=== PATIENT | female | born 1945 | race Caucasian/White ===

== ENCOUNTER → 2017-09-02 | Outpatient (CLI) | payer MEDICARE, OTHER ==
[~2017-09-02] MED LIST: ALBUTEROL2.5 MG/0.5 INH; AMITRIPTYLINE H25 M2 PO; AMITRIPTYLINE H75 M1 PO; ASPIRIN EC81 M1 PO; ASPIRIN81 M2 PO; AZITHROMYCIN 2250 MG PO; AZITHROMYCIN500 MG PO; B12INJ PO; CEFDINIR300 MG PO; EVOXAC30 MG PO; HYDROCODONE-AP1 EAC6 PO; HYDROXYCHLOROQ200 M1 PO; IRON325 MG PO; LORTAB 5-500 T1 EAC1 PO; NEXIUM 40 MG CA40 M1 PO; NEXIUM40 MG PO; NYSTATIN-TRIAMC15 G1 TOP; PREDNISONE 10 M10 MG; PREDNISONE 20 M20 M1 PO; PULMICORT0.5 MG/2 M INH; SINGULAIR 10 MG10 M1 PO; VICODIN 5-3001 EACH PO; VITAMIN B-121000 MCG PO; VITAMIN C100 MG PO; XOPENEX0.63 MG/3 INH; ZOCOR 20 MG TAB20 M1 PO
[2017-09-02 12:41] LABS: ABSOLUTE EOSINOPHILS 0.1 thou/uL (0.0-0.7); ABSOLUTE LYMPHOCYTES 0.4 thou/uL (0.8-5.3); ABSOLUTE MONOCYTES 0.2 thou/uL (0.0-1.2); ABSOLUTE NEUTROPHILS 2.6 thou/uL (1.6-8.1); BASOPHILS 0.7 %; EOSINOPHILS 2.2 %; HEMOGLOBIN 10.8 gm/dL (12.0-15.0); LYMPHOCYTES 11.9 %; MCH 27.6 pg (26.0-34.0); MCHC 32.6 g/dL (28.0-37.0); MCV 84.7 fL (80.0-100.0); MONOCYTES 5.9 %; MPV 8.3 fl. (7.2-11.1); NUCLEATED RBCS 0 /100WBC; PLATELET COUNT* 237 thou/uL (150-400); POLYS 79.3 %; RBC 3.89 mil/uL (4.20-5.00); RDW-CV 15.3 % (10.5-14.5); WBC 3.3 thou/uL (4.0-11.0)
[2017-09-02 12:57] LABS: ALBUMIN 2.8 g/dL (3.4-5.0); CALCIUM 9.4 mg/dL (8.5-10.1); CREATININE 1.2 mg/dL (0.6-1.3); POTASSIUM 3.3 mmol/L (3.5-5.1); TOTAL BILIRUBIN 0.2 mg/dL (<0.1-1.0); TOTAL PROTEIN 8.3 g/dL (6.4-8.2)
[2017-09-02 18:09] LABS: IgA 239 mg/dL (64-422); IgG 2783 mg/dL (700-1600); IgM 77 mg/dL (26-217)
[2017-09-05 12:06] LABS: KAPPA FREE LIGHT CHAINS 104.1 mg/L (3.3-19.4); LAMBDA FREE LIGHT CHAINS 92.3 mg/L (5.7-26.3)
[2017-09-05 16:13] LABS: GLOBULIN TOTAL 4.8 g/dL (2.2-3.9); M-SPIKE Not Observed g/dL (Not Observed)
== END ==
LOC: M.LAB 12:18
PROVIDERS: Internal Medicine
DX: D64.9 Anemia, unspecified (principal); M32.10 Systemic lupus erythematosus, organ or system involvement unspecified

== ENCOUNTER → 2017-11-24 | Outpatient (CLI) | payer MEDICARE, OTHER | LOC: M.RAD 12:18 | DX: Z12.31 Encounter for screening mammogram for malignant neoplasm of breast (principal); Z87.891 Personal history of nicotine dependence; Z88.0 Allergy status to penicillin ==

== ENCOUNTER → 2018-03-02 | Outpatient (CLI) | payer MEDICARE, OTHER ==
[2018-03-02 11:01] LABS: ABSOLUTE EOSINOPHILS 0.1 thou/uL (0.0-0.7); ABSOLUTE LYMPHOCYTES 0.5 thou/uL (0.8-5.3); ABSOLUTE MONOCYTES 0.2 thou/uL (0.0-1.2); ABSOLUTE NEUTROPHILS 2.3 thou/uL (1.6-8.1); EOSINOPHILS 1.8 %; HEMATOCRIT 33.7 % (37.0-47.0); LYMPHOCYTES 15.1 %; MCH 28.5 pg (26.0-34.0); MCHC 32.7 g/dL (28.0-37.0); MCV 87.2 fL (80.0-100.0); MONOCYTES 5.9 %; NUCLEATED RBCS 0 /100WBC; PLATELET COUNT* 268 thou/uL (150-400); POLYS 76.2 %; RBC 3.86 mil/uL (4.20-5.00); RDW-CV 14.6 % (10.5-14.5); WBC 3.1 thou/uL (4.0-11.0)
[2018-03-02 12:48] LABS: CALCIUM 9.2 mg/dL (8.5-10.1); CREATININE 1.3 mg/dL (0.6-1.3); POTASSIUM 3.8 mmol/L (3.5-5.1); TOTAL BILIRUBIN 0.3 mg/dL (<0.1-1.0); TOTAL PROTEIN 8.9 g/dL (6.4-8.2)
[2018-03-02 19:08] LABS: IgA 250 mg/dL (64-422); IgG 3632 mg/dL (700-1600); IgM 102 mg/dL (26-217)
[2018-03-03 15:07] LABS: KAPPA FREE LIGHT CHAINS 123.6 mg/L (3.3-19.4); LAMBDA FREE LIGHT CHAINS 90.9 mg/L (5.7-26.3)
[2018-03-07 18:06] LABS: GLOBULIN TOTAL 5.2 g/dL (2.2-3.9); M-SPIKE Not Observed g/dL (Not Observed)
== END ==
LOC: M.LAB 10:43
PROVIDERS: Internal Medicine
DX: D64.9 Anemia, unspecified (principal); M32.10 Systemic lupus erythematosus, organ or system involvement unspecified

== ENCOUNTER → 2018-03-15 | Outpatient (CLI) | payer MEDICARE, OTHER | LOC: M.RAD 08:28 | DX: D63.8 Anemia in other chronic diseases classified elsewhere (principal); D89.0 Polyclonal hypergammaglobulinemia; J45.30 Mild persistent asthma, uncomplicated; J18.9 Pneumonia, unspecified organism ==

== ENCOUNTER → 2018-04-11 | Outpatient (CLI) | payer MEDICARE, OTHER | LOC: M.RAD 15:01 | DX: M81.0 Age-related osteoporosis without current pathological fracture (principal); M85.89 Other specified disorders of bone density and structure, multiple sites; Z78.0 Asymptomatic menopausal state ==

== ENCOUNTER → 2018-05-10 | Outpatient (CLI) | payer MEDICARE, OTHER | LOC: M.RAD 11:47 | DX: K44.9 Diaphragmatic hernia without obstruction or gangrene (principal); J98.4 Other disorders of lung; R05 Cough ==

== ENCOUNTER → 2018-08-23 | Outpatient (CLI) | payer MEDICARE, OTHER ==
[2018-08-23 13:31] LABS: ABSOLUTE EOSINOPHILS 0.1 thou/uL (0.0-0.7); ABSOLUTE LYMPHOCYTES 0.4 thou/uL (0.8-5.3); ABSOLUTE MONOCYTES 0.2 thou/uL (0.0-1.2); ABSOLUTE NEUTROPHILS 2.6 thou/uL (1.6-8.1); BASOPHILS 0.4 %; EOSINOPHILS 1.7 %; HEMATOCRIT 31.8 % (37.0-47.0); HEMOGLOBIN 10.6 gm/dL (12.0-15.0); LYMPHOCYTES 13.4 %; MCH 28.4 pg (26.0-34.0); MCHC 33.3 g/dL (28.0-37.0); MCV 85.5 fL (80.0-100.0); MONOCYTES 5.1 %; NUCLEATED RBCS 0 /100WBC; PLATELET COUNT* 249 thou/uL (150-400); POLYS 79.4 %; RBC 3.72 mil/uL (4.20-5.00); RDW-CV 14.6 % (10.5-14.5); WBC 3.3 thou/uL (4.0-11.0)
[2018-08-23 13:40] LABS: POTASSIUM 3.1 mmol/L (3.5-5.1)
[2018-08-23 13:49] LABS: CREATININE 1.2 mg/dL (0.6-1.3)
[2018-08-23 13:51] LABS: CALCIUM 8.6 mg/dL (8.5-10.1)
[2018-08-23 13:52] LABS: ALBUMIN 2.8 g/dL (3.4-5.0); TOTAL PROTEIN 8.3 g/dL (6.4-8.2)
[2018-08-23 13:53] LABS: TOTAL BILIRUBIN 0.1 mg/dL (<0.1-1.0)
[2018-08-23 13:58] LABS: % SATURATION 15 % (20-39); IRON 35 ug/dL (50-175)
[2018-08-23 19:06] LABS: IgA 249 mg/dL (64-422); IgG 3047 mg/dL (700-1600); IgM 69 mg/dL (26-217)
[2018-08-24 15:07] LABS: KAPPA FREE LIGHT CHAINS 114.5 mg/L (3.3-19.4); LAMBDA FREE LIGHT CHAINS 71.4 mg/L (5.7-26.3)
[2018-08-25 16:06] LABS: GLOBULIN TOTAL 4.3 g/dL (2.2-3.9); M-SPIKE Not Observed g/dL (Not Observed)
== END ==
LOC: M.LAB 12:59
PROVIDERS: Internal Medicine
DX: D64.9 Anemia, unspecified (principal); M32.10 Systemic lupus erythematosus, organ or system involvement unspecified; D89.0 Polyclonal hypergammaglobulinemia

== ENCOUNTER → 2019-01-25 | Outpatient (CLI) | payer MEDICARE, OTHER | LOC: M.RAD 08:50 | DX: Z12.31 Encounter for screening mammogram for malignant neoplasm of breast (principal) ==

== ENCOUNTER → 2019-02-27 | Outpatient (CLI) | payer MEDICARE, OTHER ==
[2019-02-27 13:47] LABS: HEMATOCRIT 33.1 % (37.0-47.0); HEMOGLOBIN 11.1 gm/dL (12.0-15.0); MCH 29.1 pg (26.0-34.0); MCHC 33.6 g/dL (28.0-37.0); MCV 86.4 fL (80.0-100.0); MPV 8.6 fl. (7.2-11.1); NUCLEATED RBCS 0 /100WBC; PLATELET COUNT* 291 thou/uL (150-400); RBC 3.83 mil/uL (4.20-5.00); RDW-CV 14.3 % (10.5-14.5); WBC 7.7 thou/uL (4.0-11.0)
[2019-02-27 14:00] LABS: CALCIUM 8.7 mg/dL (8.5-10.1); CREATININE 1.4 mg/dL (0.6-1.3); POTASSIUM 3.3 mmol/L (3.5-5.1); TOTAL BILIRUBIN 0.2 mg/dL (<0.1-1.0)
[2019-02-27 14:15] LABS: ABSOLUTE LYMPHOCYTES 0.8 thou/uL (0.8-5.3); ABSOLUTE MONOCYTES 0.4 thou/uL (0.0-1.2); ABSOLUTE NEUTROPHILS 6.5 thou/uL (1.6-8.1)
[2019-02-27 14:16] LABS: HYPOCHROMASIA 1+; MICROCYTES 1+; PLATELET ESTIMATE ADEQUATE; TARGET CELLS Occasional
[2019-02-27 21:05] LABS: IgA 242 mg/dL (64-422); IgG 2801 mg/dL (700-1600); IgM 66 mg/dL (26-217)
[2019-02-28 15:10] LABS: KAPPA FREE LIGHT CHAINS 86.3 mg/L (3.3-19.4); LAMBDA FREE LIGHT CHAINS 57.9 mg/L (5.7-26.3)
[2019-03-02 06:08] LABS: BETA-2-MICROGLOBULIN 4.5 mg/L (0.6-2.4)
[2019-03-02 10:08] LABS: GLOBULIN TOTAL 4.8 g/dL (2.2-3.9); M-SPIKE Not Observed g/dL (Not Observed)
== END ==
LOC: M.LAB 13:11
PROVIDERS: Internal Medicine
DX: D64.9 Anemia, unspecified (principal); M32.10 Systemic lupus erythematosus, organ or system involvement unspecified; D89.0 Polyclonal hypergammaglobulinemia

== ENCOUNTER → 2019-08-21 | Outpatient (CLI) | payer MEDICARE, OTHER ==
[2019-08-21 11:16] LABS: ABSOLUTE EOSINOPHILS 0.1 thou/uL (0.0-0.7); ABSOLUTE LYMPHOCYTES 0.4 thou/uL (0.8-5.3); ABSOLUTE MONOCYTES 0.1 thou/uL (0.0-1.2); ABSOLUTE NEUTROPHILS 1.6 thou/uL (1.6-8.1); BASOPHILS 0.7 %; EOSINOPHILS 3.6 %; HEMATOCRIT 32.5 % (37.0-47.0); HEMOGLOBIN 10.9 gm/dL (12.0-15.0); LYMPHOCYTES 16.8 %; MCH 28.6 pg (26.0-34.0); MCHC 33.5 g/dL (28.0-37.0); MCV 85.4 fL (80.0-100.0); MONOCYTES 6.4 %; MPV 8.5 fl. (7.2-11.1); NUCLEATED RBCS 0 /100WBC; PLATELET COUNT* 215 thou/uL (150-400); POLYS 72.5 %; RBC 3.81 mil/uL (4.20-5.00); WBC 2.2 thou/uL (4.0-11.0)
[2019-08-21 11:31] LABS: CALCIUM 8.7 mg/dL (8.5-10.1); CREATININE 1.5 mg/dL (0.6-1.3); POTASSIUM 3.3 mmol/L (3.5-5.1); TOTAL BILIRUBIN 0.3 mg/dL (<0.1-1.0); TOTAL PROTEIN 8.3 g/dL (6.4-8.2)
[2019-08-21 21:07] LABS: IgA 237 mg/dL (64-422); IgG 2833 mg/dL (586-1602); IgM 65 mg/dL (26-217)
[2019-08-22 13:08] LABS: KAPPA FREE LIGHT CHAINS 145.7 mg/L (3.3-19.4); LAMBDA FREE LIGHT CHAINS 83.6 mg/L (5.7-26.3)
[2019-08-23 12:07] LABS: GLOBULIN TOTAL 4.7 g/dL (2.2-3.9); M-SPIKE Not Observed g/dL (Not Observed)
[2019-08-23 16:07] LABS: BETA-2-MICROGLOBULIN 6.4 mg/L (0.6-2.4)
== END ==
LOC: M.LAB 10:46
PROVIDERS: Internal Medicine
DX: D89.0 Polyclonal hypergammaglobulinemia (principal); D64.9 Anemia, unspecified; M32.10 Systemic lupus erythematosus, organ or system involvement unspecified

== ENCOUNTER 2019-09-26 21:40 | Inpatient (IN) | payer MEDICARE, OTHER ==
[~2019-09-26] VITALS: Ht 154.9 cm; Wt 67.6 kg
[2019-09-26 21:42] VITALS: BP 138/67
[2019-09-26 22:28] LABS: CALCIUM 7.8 mg/dL (8.5-10.1); CREATININE 1.8 mg/dL (0.6-1.3)
[2019-09-26 22:33] LABS: ALBUMIN 2.4 g/dL (3.4-5.0); TOTAL BILIRUBIN 0.6 mg/dL (<0.1-1.0); TOTAL PROTEIN 8.4 g/dL (6.4-8.2)
[2019-09-26 22:39] LABS: POTASSIUM 2.9 mmol/L (3.5-5.1)
[2019-09-26 23:06] LABS: HEMATOCRIT 32.9 % (37.0-47.0); HEMOGLOBIN 11.1 gm/dL (12.0-15.0); MCH 28.7 pg (26.0-34.0); MCHC 33.9 g/dL (28.0-37.0); MCV 84.5 fL (80.0-100.0); MPV 10.7 fl. (7.2-11.1); NUCLEATED RBCS 0 /100WBC; PLATELET COUNT* 83 thou/uL (150-400); RBC 3.89 mil/uL (4.20-5.00); RDW-CV 13.7 % (10.5-14.5)
[2019-09-26 23:39] LABS: ABSOLUTE LYMPHOCYTES 0.1 thou/uL (0.8-5.3); ABSOLUTE MONOCYTES 0.4 thou/uL (0.0-1.2); ABSOLUTE NEUTROPHILS 8.6 thou/uL (1.6-8.1); PLATELET ESTIMATE DECREASED; TOXIC GRANULATION 2+
[2019-09-26 23:40] LABS: ANISOCYTOSIS Occasional
[2019-09-27 00:10] VITALS: BP 113/62
[2019-09-27 00:58] VITALS: BP 96/53
[2019-09-27 07:35] LABS: URINE BILIRUBIN NEGATIVE (Negative); URINE BLOOD 1+ (Negative); URINE CLARITY CLEAR; URINE COLOR DARK YELLOW; URINE GLUCOSE-RANDOM NEGATIVE (Negative); URINE KETONES NEGATIVE (Negative); URINE LEUKOCYTES-REFLEX NEGATIVE (Negative); URINE NITRITE-REFLEX NEGATIVE (Negative); URINE PROTEIN 1+ (Negative); URINE SPECIFIC GRAVITY >= 1.030 (1.005-1.030); URINE UROBILINOGEN 0.2 E.U./dl (0.2-1.0)
[2019-09-27 07:43] LABS: BACTERIA-REFLEX 1-9 Few /HPF (None Seen); FINE GRANULAR CASTS 0-3 Few /LPF (None Seen); HYALINE CASTS >10 Many /LPF (None Seen); MUCUS None Seen strn/LPF (None Seen); SQUAMOUS 4-10 Moderate /LPF (0-3); URINE RBC 3-10 Few /HPF (0-2); URINE WBC-REFLEX 0-5 Rare /HPF (0-5)
[2019-09-27 07:44] LABS: AMORPHOUS URATES Moderate /LPF (None Seen)
[2019-09-27 08:34] VITALS: BP 94/60
--- NOTE | 2019-09-27 08:48 | EKG ---
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: ALAINA : 1945 Requested By: Jitendra Patel Order Number: [id number] MD: Liban Vick Measurements Intervals [place] Rate: 111 P: 49 GA: 174 QRS: 7 QRSD: 95 T: -17 QT: 321 QTc: 436 Interpretive Statements Sinus tachycardia Incomplete right bundle branch block Borderline T abnormalities, diffuse leads Compared to ECG 01/28/2014 15:28:16 RSR' in V1 or V2 now present T-wave abnormality still present Electronically Signed On 09-27-2019 8:46:54 CDT by Liban Vick [email or web address] <ELECTRONICALLY SIGNED> By: Liban Vick MD, [facility] 09/27/19 0846 13 13 Liban Vick MD, [facility] /EPI
[2019-09-27 09:22] LABS: CHOLESTEROL 84 mg/dL (<200); HDL CHOLESTEROL 9 mg/dL (>40); LDL CHOLESTEROL 43 mg/dL (<100); MAGNESIUM 1.8 mg/dL (1.8-2.4); SERUM ASSESSMENT Clear; TC:HDL 9.3 Ratio (Not establshd); TRIGLYCERIDE 161 mg/dL (<150); VLDL 32 mg/dL (<40)
[2019-09-27 10:01] LABS: CALCIUM 7.2 mg/dL (8.5-10.1); CREATININE 1.7 mg/dL (0.6-1.3)
[2019-09-27 10:04] LABS: POTASSIUM 2.8 mmol/L (3.5-5.1)
[2019-09-27 12:22] VITALS: BP 102/64
--- NOTE | 2019-09-27 14:29 | CON ---
[address] [address] CONSULTATION Name: ATUL HAMLIN Room: [address] IN [facility]#: [id number] Admission: 09/26/19 Attend Phys: Jesus Palmer MD Discharge: Date of : 47 Report #: [id number] THIS REPORT FOR: //name// cc: Jatinder Lugo MD, David L. MD ~ THIS REPORT FOR: //name// CC: Jatinder Palmer DATE OF SERVICE: 09/27/2019 INFECTIOUS DISEASE CONSULTATION ATTENDING PHYSICIAN: Casimiro Escobar MD REASON FOR EVALUATION: Pneumonitis, septicemia. HISTORY OF PRESENT ILLNESS: Chart reviewed, patient examined. This is a 74-year-old woman with known lupus, who apparently gets recurrent pneumonitis, who has been ill with 3-4 days prior to her admission, had experienced a syncopal episode, progressive dyspnea and overall weakness, did have some diarrhea as well. She is not aware of fevers, but was recorded to have some temperature elevated while initially evaluated. Denies any particular exposure history. Evaluation was undertaken, was found to have a moderately elevated lactic acid 2.9, however, repeat was 1.4. Elevated troponin level, some monitor renal insufficiency with a creatinine of 1.8. Sodium 126. CBC showed lymphocytopenia of 100 and AST 132 compared to an ALT of 45. Urinalysis was fairly unremarkable. Blood cultures collected at time of admission, now with 2+/2 with Gram-positive cocci. Sputum and urine cultures are pending. Empirically was started on therapy with vancomycin, given a dose of cefepime as well. She states she feels somewhat better overall with some hydration. She is supported with 1 liter per nasal cannula oxygen at this point. She is generally lucid. No overt coughing during the visit. ALLERGIES: PENICILLINS, QUINOLONES. CURRENT MEDICATIONS: Cyanocobalamin, montelukast, amitriptyline, atorvastatin, vancomycin, cevimeline, p.r.n. analgesics and antiemetics. PAST MEDICAL HISTORY: As described above, systemic lupus erythematosus, on therapy with Plaquenil; history of anemia; high cholesterol; reflux. SOCIAL HISTORY: Nonsmoker, no ethanol, no illicit drug use. FAMILY HISTORY: [place] [address] CONSULTATION Name: ATUL HAMLIN Room: [address]#: [id number] Admission: 09/26/19 Attend Phys: Jesus Palmer MD Discharge: Date of : 47 Report #: [id number] REVIEW OF SYSTEMS: As above, otherwise unremarkable. PHYSICAL EXAMINATION: GENERAL: She appears chronically ill, undernourished, is pleasant, cooperative, in [id number]-oanzyqrc distress. VITAL SIGNS: Temperature on admission 102.8, more recently 98.5; pulse 98; respirations 17; blood pressure 102/64. SKIN: Warm, dry, no rashes. HEENT: Normocephalic. Extraocular muscles intact. Nasal cannula in place. NECK: Supple. LUNGS: Few scattered coarse breath sounds, primarily at the bases. HEART: Regular. Borderline tachycardic. I do not appreciate murmur. ABDOMEN: Soft, nontender, nondistended. EXTREMITIES: No cyanosis. GENITOURINARY: Deferred. RECTAL: Deferred. LABORATORY DATA: Initial lactic acid of 2.9, repeat was 1.4. Troponin elevated on 3 occasions 0.91, 1.04 and 0.9. CBC: White count of 9.0, H and H 11.1 and 32.9 and platelets of 83. She does have a lymphocytopenia of 100, 2+ toxic granulations. Prealbumin of 8.5. Electrolytes: Sodium 126, potassium 2.9, chloride 93, bicarbonate 25, anion gap of 8, BUN and creatinine 50 and 1.8, glucose of 132. ALT of 45, lipase of 89. Albumin of 2.4, total protein of 8.4. Estimated GFR 28. Chest x-ray: Mild bibasilar infiltrates, atelectasis without effusions. Blood cultures positive x 2. ASSESSMENT AND PLAN: 1. Gram-positive cocci, septicemia, apparently has a degree of pneumonitis as well. Agree with empiric antibacterial antibiotics including vancomycin, which should give us reasonable coverage. We will wait for the ID and susceptibilities. Blood cultures. 2. Appears to have pneumonitis with mild respiratory failure. At this point, certainly cannot exclude COVID given the pattern of the laboratory. At this point, she is not critically ill from that standpoint. We will check additional acute phase reactant markers. 3. Systemic lupus erythematosus. At this point, she is on Plaquenil. We will continue that. 4. Malnourishment. Try to optimize her nutritional status. It is not clear that she has an occult process as well and see how she does clinically over the course of next 24-48 hours, in the event this is a true bacteremia. Consider echo. Further diagnostic testings and perhaps imaging as well. <ELECTRONICALLY SIGNED> By: Gaston Bajwa MD 09/27/19 1429 1308 1405Josekeila Bajwa MD /[place]
[2019-09-27 15:05] VITALS: BP 135/74
[2019-09-27 20:03] VITALS: BP 105/61
[2019-09-28 00:24] VITALS: BP 97/53
[2019-09-28 02:08] LABS: GLYCOHEMOGLOBIN (HGB A1C) 5.5 % (4.8-5.6)
[2019-09-28 03:18] LABS: ALBUMIN 1.7 g/dL (3.4-5.0); CALCIUM 7.2 mg/dL (8.5-10.1); CREATININE 1.5 mg/dL (0.6-1.3); MAGNESIUM 1.9 mg/dL (1.8-2.4); PHOSPHORUS* 1.5 mg/dL (2.5-4.9); POTASSIUM 4.8 mmol/L (3.5-5.1)
[2019-09-28 06:00] VITALS: BP 131/71
[2019-09-28 08:00] VITALS: BP 145/78
[2019-09-28 12:00] VITALS: BP 139/73
[2019-09-28 15:41] VITALS: BP 133/74
--- NOTE | 2019-09-28 17:16 | EKG ---
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 : 1945 Requested By: Casimiro Escobar Order Number: [id number] Reading MD: Micah Cohen Measurements Intervals [place] Rate: 107 P: 19 IA: 189 QRS: 4 QRSD: 98 T: 63 QT: 357 QTc: 477 Interpretive Statements Sinus tachycardia LAE, consider biatrial enlargement Baseline wander in lead(s) II,III,aVF Compared to ECG 09/26/2019 22:14 Artifact is noted Electronically Signed On 09-28-2019 17:14:34 CDT by Micah Cohen [email or web address] <ELECTRONICALLY SIGNED> By: Micah Cohen MD, [facility] 09/28/19 1714 1033 1033 Micah Cohen MD, [facility] /EPI
[2019-09-28 20:00] VITALS: BP 129/64
[2019-09-29] VITALS: BP 137/79
[2019-09-29 04:00] VITALS: BP 121/62
[2019-09-29 04:33] LABS: ABSOLUTE BASOPHILS 0.1 thou/uL (0.0-0.2); ABSOLUTE LYMPHOCYTES 0.3 thou/uL (0.8-5.3); ABSOLUTE MONOCYTES 0.7 thou/uL (0.0-1.2); BASOPHILS 1.3 %; EOSINOPHILS 0.1 %; HEMOGLOBIN 9.2 gm/dL (12.0-15.0); LYMPHOCYTES 2.7 %; MCH 28.9 pg (26.0-34.0); MCHC 33.9 g/dL (28.0-37.0); MCV 85.2 fL (80.0-100.0); MPV 11.5 fl. (7.2-11.1); NUCLEATED RBCS 0 /100WBC; PLATELET COUNT* 90 thou/uL (150-400); POLYS 88.9 %; RBC 3.17 mil/uL (4.20-5.00); RDW-CV 15.1 % (10.5-14.5); WBC 10.1 thou/uL (4.0-11.0)
[2019-09-29 06:36] LABS: ALBUMIN 1.7 g/dL (3.4-5.0); CALCIUM 7.5 mg/dL (8.5-10.1); CREATININE 1.2 mg/dL (0.6-1.3); MAGNESIUM 1.9 mg/dL (1.8-2.4); PHOSPHORUS* 2.1 mg/dL (2.5-4.9); POTASSIUM 4.3 mmol/L (3.5-5.1)
[2019-09-29 08:00] VITALS: BP 122/59
[2019-09-29 12:00] VITALS: BP 130/54
--- NOTE | 2019-09-29 12:24 | CON ---
[address] [address] CONSULTATION Name: NAFISAIRENEATUL Locke Room: [address] IN [facility]#: [id number] Admission: 09/26/19 Attend Phys: Jesus Palmer MD Discharge: Date of : 47 Report #: [id number] THIS REPORT FOR: //name// cc: Jatinder Lugo MD, David L. MD ~ THIS REPORT FOR: //name// CC: Jatinder Palmer DATE OF SERVICE: 09/29/2019 CARDIOLOGY CONSULTATION LOCATION: The patient in room 112. HISTORY OF PRESENT ILLNESS: The patient is a pleasant 74-year-old female who presented with weakness, lethargy, diarrhea and alteration of consciousness. Since admission, she has been felt to have sepsis syndrome. She did have a mild increase in troponin slightly greater than 1 unit. She categorically denies chest, neck, jaw or arm discomfort at any time associated with acute illness. There was mild dyspnea, which is improving since admission. She denies history of significant cardiac problems with the exception of hypercholesterolemia. PAST MEDICAL HISTORY: Remarkable for the aforementioned syncope on admission, volume depletion with prior diarrhea, and lupus. SOCIAL HISTORY: She has functioned independently. PHYSICAL EXAMINATION: GENERAL: Reveals a frail-appearing elderly female in no acute distress. VITAL SIGNS: Blood pressure 120/70, pulse rate is 78, respirations are 20 per minute. NECK: Jugular venous pressure is normal. CHEST: Reveals rare basilar crackles. CARDIAC: Reveals normal first and second heart sounds without murmurs or gallops. ABDOMEN: Soft. EXTREMITIES: Well perfused [place] [address] CONSULTATION Name: ATUL HAMLIN Room: [address] IN [facility]#: [id number] Admission: 09/26/19 Attend Phys: Jesus Palmer MD Discharge: Date of : 47 Report #: [id number] LABORATORY DATA: Troponin slightly greater than 1. EKGs revealed no evidence for acute injury. IMPRESSION: 1. Pneumonitis with sepsis. 2. Mild increase in troponin I suspect that this is in the context of the complex acute presenting illness rather than acute coronary occlusion. 3. Hypercholesterolemia. 4. Lupus. RECOMMENDATIONS: 1. Agree with continued supportive measures. 2. When the patient returns to more robust status, one could consider proceeding with Lexiscan Cardiolite testing to address the presence or absence of inducible ischemia in this context. These impressions were discussed with Dr. Solano. Thank you for allowing us to see the patient in cardiovascular assessment. <ELECTRONICALLY SIGNED> By: Micah Cohen MD, [facility] 09/29/19 1224 1200 1217Jokay Cohen MD, FACC /nt
[2019-09-29 15:57] VITALS: BP 135/50
[2019-09-29 20:00] VITALS: BP 117/55
[2019-09-30] VITALS: BP 115/52
[2019-09-30 04:51] VITALS: BP 105/54
[2019-09-30 05:35] LABS: HEMATOCRIT 27.2 % (37.0-47.0); HEMOGLOBIN 9.2 gm/dL (12.0-15.0); MCH 28.8 pg (26.0-34.0); MCHC 33.7 g/dL (28.0-37.0); MCV 85.2 fL (80.0-100.0); RBC 3.2 mil/uL (4.20-5.00); RDW-CV 14.9 % (10.5-14.5); WBC 11.6 thou/uL (4.0-11.0)
[2019-09-30 05:51] LABS: ALBUMIN 1.7 g/dL (3.4-5.0); CALCIUM 7.6 mg/dL (8.5-10.1); CREATININE 1.5 mg/dL (0.6-1.3); MAGNESIUM 1.9 mg/dL (1.8-2.4); PHOSPHORUS* 1.7 mg/dL (2.5-4.9); POTASSIUM 3.8 mmol/L (3.5-5.1)
[2019-09-30 09:08] VITALS: BP 130/60
[2019-09-30 12:29] LABS: ALBUMIN 1.7 g/dL (3.4-5.0); DIRECT BILIRUBIN 0.4 mg/dL (<0.1-0.3); TOTAL BILIRUBIN 0.9 mg/dL (<0.1-1.0); TOTAL PROTEIN 6.6 g/dL (6.4-8.2)
[2019-09-30 15:30] VITALS: BP 128/58
[2019-09-30 18:04] LABS: BE -10.8 mmol/L (-2 to +3); pH 7.427 (7.340-7.450)
[2019-09-30 18:04] LABS: HEMATOCRIT 26.1 % (37.0-47.0); HEMOGLOBIN 8.9 gm/dL (12.0-15.0); MCH 28.8 pg (26.0-34.0); MCHC 34.2 g/dL (28.0-37.0); MCV 84.3 fL (80.0-100.0); MPV 10.6 fl. (7.2-11.1); NUCLEATED RBCS 0 /100WBC; PLATELET COUNT* 140 thou/uL (150-400); RDW-CV 15.2 % (10.5-14.5); WBC 10.7 thou/uL (4.0-11.0)
[2019-09-30 18:15] LABS: PCO2 18.6 mmHg (35.0-45.0)
[2019-09-30 18:21] LABS: ALBUMIN 1.6 g/dL (3.4-5.0); CALCIUM 7.7 mg/dL (8.5-10.1); CREATININE 1.6 mg/dL (0.6-1.3); POTASSIUM 3.7 mmol/L (3.5-5.1); TOTAL BILIRUBIN 0.8 mg/dL (<0.1-1.0); TOTAL PROTEIN 6.4 g/dL (6.4-8.2)
[2019-09-30 18:23] LABS: TROPONIN-I LEVEL 1.72 ng/mL (<0.06)
[2019-09-30 18:40] LABS: ABSOLUTE LYMPHOCYTES 0.4 thou/uL (0.8-5.3); ABSOLUTE MONOCYTES 0.6 thou/uL (0.0-1.2); ABSOLUTE NEUTROPHILS 9.6 thou/uL (1.6-8.1)
[2019-09-30 18:41] LABS: ANISOCYTOSIS Occasional; PLATELET ESTIMATE ADEQUATE
[2019-10-01] VITALS (41 sets, daily range): BP systolic 74–149; BP diastolic 34–109
[2019-10-01 02:07] LABS: HEPATITIS B SURFACE AG Negative (Negative)
[2019-10-01 10:01] LABS: HEMATOCRIT 26.3 % (37.0-47.0); HEMOGLOBIN 8.4 gm/dL (12.0-15.0); MCH 28.1 pg (26.0-34.0); MCHC 31.8 g/dL (28.0-37.0); MCV 88.4 fL (80.0-100.0); MPV 11.1 fl. (7.2-11.1); RBC 2.97 mil/uL (4.20-5.00); RDW-CV 15.9 % (10.5-14.5); WBC 16.2 thou/uL (4.0-11.0)
[2019-10-01 10:18] LABS: ALBUMIN 1.8 g/dL (3.4-5.0); CALCIUM 7.8 mg/dL (8.5-10.1); CREATININE 1.6 mg/dL (0.6-1.3); MAGNESIUM 2.1 mg/dL (1.8-2.4); POTASSIUM 3.9 mmol/L (3.5-5.1); TOTAL BILIRUBIN 0.7 mg/dL (<0.1-1.0); TOTAL PROTEIN 7.2 g/dL (6.4-8.2)
[2019-10-01 12:08] LABS: GLOBULIN TOTAL 4.2 g/dL (2.2-3.9); M-SPIKE Not Observed g/dL (Not Observed)
--- NOTE | 2019-10-01 14:33 | EKG ---
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: Belen ZACARIAS : 1945 Requested By: Casimiro Escobar Order Number: [id number] Reading MD: Jatinder Rico Measurements Intervals [place] Rate: 99 P: 52 MT: 161 QRS: 21 QRSD: 71 T: 41 QT: 396 QTc: 509 Interpretive Statements Sinus rhythm Low voltage, precordial leads Borderline repolarization abnormality Prolonged QT interval Compared to ECG 09/28/2019 10:33:35 Low QRS voltage now present Prolonged QT interval now present Sinus tachycardia no longer present Electronically Signed On 10-01-2019 14:31:07 CDT by Jatinder Rico [email or web address] <ELECTRONICALLY SIGNED> By: Jatinder Rico MD, [facility] 10/01/19 1431 1353 1353 Jatinder Rico MD, [facility] /EPI
--- NOTE | 2019-10-01 14:34 | EKG ---
[place] [address] ELECTROCARDIOGRAM REPORT Name: ATUL HAMLIN Cornelia Room: [address] ADM IN [facility]#: [id number] Admission: 09/26/19 Attend Phys: Jesus Palmer, Discharge: Date of : 47 Date of Service: 09/30/19 1809 Report #: [id number] THIS REPORT FOR: //name// [facility] ED Test Date: 2019-09-30 Test Time: 18:09:34 Pat Name: ATUL HAMLIN Department: Room: [facility] Gender: F Fine Patcher: Александр ZACARIAS : 1945 Requested By: Liya Luciano Order Number: [id number] Martita MD: Jatinder Rico Measurements Intervals [place] Rate: 108 P: 49 [place]: 163 QRS: 10 QRSD: 88 T: -83 QT: 316 QTc: 424 Interpretive Statements Sinus tachycardia artifact noted Repol abnrm suggests ischemia, inferior leads Electronically Signed On 10-01-2019 14:31:52 CDT by Jatinder Rico [email or web address] <ELECTRONICALLY SIGNED> By: Jatinder Rico MD, [facility] 10/01/19 1431 1809 1809 Jatinder Rico MD, [facility] /EPI
--- NOTE | 2019-10-01 16:25 | 2DMMODE ---
[place] [address] 2 D/M-MODE ECHOCARDIOGRAM Name: NAFISAATUL BONILLA Room: [address] IN M.R.#: [id number] Admission: 09/26/19 Attend Phys: Jesus Palmer, Discharge: Date of : 47 Date of Service: 10/01/19 1623 Report #: [id number] THIS REPORT FOR: cc: Jatinder Lugo MD, David L. MD Blick, David R. MD [facility] ~ APPROVED REPORT Study performed: 10/01/2019 14:56:25 EXAM: Comprehensive 2D, Doppler, and color-flow Echocardiogram Patient Location: In-Patient BSA: 1.53 HR: 110 bpm BP: 105/85 mmHg Other Information Study Quality: Good Indications Abnormal ECG Dyspnea Elevated Troponin Fever 2D Dimensions IVSd: 11.19 (7-11mm) LVOT Diam: 18.28 (18-24mm) LVDd: 43.44 mm PWd: 10.20 (7-11mm) Ascending Ao: 22.70 (22-36mm) LVDs: 28.15 (25-40mm) Aortic Root: 26.52 mm Volumes Left Atrial Volume (Systole) LA ESV Index: 22.00 mL/m2 Aortic Valve AoV Peak Ramone.: 2.76 m/s AO Peak Gr.: 30.52 mmHg LVOT Max P.82 mmHg AO Mean Gr.: 16.28 mmHg LVOT Mean P.51 mmHg LVOT Max V: 0.98 m/s AO V2 VTI: 43.60 cm LVOT Mean V: 0.53 m/s RODRIGO (VTI): 1.11 cm2 LVOT V1 VTI: 18.37 [place] [address] 2 D/M-MODE ECHOCARDIOGRAM Name: ATUL HAMLIN Room: [address]#: [id number] Admission: 09/26/19 Attend Phys: Jesus Palmer, Discharge: Date of : 47 Date of Service: 10/01/19 1623 Report #: [id number] [place]: 6.30 m/s2 AI PHT: 158.69 ms Mitral Valve E/A Ratio: 1.44 MV Decel. Time: 124.32 ms MV E Max Ramone.: 0.96 m/s MV PHT: 36.05 ms MVA (PHT): 6.10 cm2 TDI E/Lateral E': 13.71 E/Medial E': 13.71 Medial E' Ramone.: 0.07 m/s Lateral E' Ramone.: 0.07 m/s Pulmonary Valve PV Peak Ramone.: 0.74 m/s PV Peak Gr.: 2.18 mmHg Tricuspid Valve RAP Estimate: 5.00 mmHg TR Peak Gr.: 55.95 mmHg RVSP: 60.95 mmHg PA Pressure: 60.95 mmHg Left Ventricle The left ventricle is normal size. There is normal LV segmental wall motion. There is normal left ventricular wall thickness. Left ventricular systolic function is normal. The left ventricular ejection fraction is within the normal range. LVEF is 55-60%. Right Ventricle The right ventricle is normal size. The right ventricular systolic function is normal. Atria The left atrium size is normal. Interatrial septum not well visualized. The right atrium size is normal. Aortic Valve Aortic valve is calcified. Mild aortic regurgitation. Mild aortic stenosis. Mitral Valve There is mitral annular calcification. moderate mitral regurgitation. No evidence of mitral valve stenosis. [place] [address] 2 D/M-MODE ECHOCARDIOGRAM Name: NAFISAAUTL BONILLA Room: [address]#: [id number] Admission: 09/26/19 Attend Phys: Jesus Palmer, Discharge: Date of : 47 Date of Service: 10/01/19 1623 Report #: [id number] The tricuspid valve is normal in structure. Moderate tricuspid regurgitation. estimated pa pressure 60 mm Hg Pulmonic Valve The pulmonary valve is normal in structure. Trace pulmonic regurgitation. Great Vessels The aortic root is normal in size. IVC is normal in size and collapses >50% with inspiration. Pericardium There is no pericardial effusion. <Conclusion> LVEF is 55-60%. Mild aortic stenosis. Mild aortic regurgitation. moderate mitral regurgitation. Moderate tricuspid regurgitation. estimated pa pressure 60 mm Hg <ELECTRONICALLY SIGNED> By: Jatinder Rico MD, [facility] 10/01/19 1623 1623 1623 Jatinder Rico MD, [facility] /INF
[2019-10-02] VITALS (40 sets, daily range): BP systolic 77–238; BP diastolic 47–187
[2019-10-02 04:52] LABS: ABSOLUTE LYMPHOCYTES 0.6 thou/uL (0.8-5.3); ABSOLUTE MONOCYTES 0.8 thou/uL (0.0-1.2); ABSOLUTE NEUTROPHILS 13.7 thou/uL (1.6-8.1); BASOPHILS 0.3 %; EOSINOPHILS 0.1 %; HEMATOCRIT 22.3 % (37.0-47.0); HEMOGLOBIN 7.5 gm/dL (12.0-15.0); LYMPHOCYTES 4.2 %; MCHC 33.6 g/dL (28.0-37.0); MONOCYTES 5.4 %; MPV 10.5 fl. (7.2-11.1); NUCLEATED RBCS 0 /100WBC; PLATELET COUNT* 196 thou/uL (150-400); RBC 2.68 mil/uL (4.20-5.00); RDW-CV 15.3 % (10.5-14.5); WBC 15.2 thou/uL (4.0-11.0)
[2019-10-02 04:53] LABS: ALBUMIN 1.5 g/dL (3.4-5.0); CALCIUM 7.6 mg/dL (8.5-10.1); CREATININE 1.5 mg/dL (0.6-1.3); POTASSIUM 3.2 mmol/L (3.5-5.1); TOTAL BILIRUBIN 0.6 mg/dL (<0.1-1.0); TOTAL PROTEIN 6.3 g/dL (6.4-8.2)
[2019-10-02 05:15] LABS: MCV 83.3 fL (80.0-100.0)
--- NOTE | 2019-10-02 13:29 | EKG ---
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: BRITTA : 1945 Requested By: Casimiro Escobar Order Number: [id number] Reading MD: Liban Vick Measurements Intervals [place] Rate: 103 P: 42 AL: 166 QRS: 18 QRSD: 95 T: 16 QT: 403 QTc: 528 Interpretive Statements Sinus tachycardia Borderline repolarization abnormality Prolonged QT interval Compared to ECG 09/30/2019 18:09:34 Prolonged QT interval now present Possible ischemia no longer present Electronically Signed On 10-02-2019 13:27:31 CDT by Liban Vick [email or web address] <ELECTRONICALLY SIGNED> By: Liban Vick MD, FACC 10/02/19 1327 1636 1636 Liban Vick MD, FACC /EPI
--- NOTE | 2019-10-02 14:29 | EKG ---
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 : 1945 Requested By: Jatinder Rico Order Number: [id number] Martita MD: Jatinder Rico Measurements Intervals [place] Rate: 113 P: 47 [place]: 149 QRS: -1 QRSD: 73 T: 213 QT: 362 QTc: 497 Interpretive Statements Sinus tachycardia Nonspecific repol abnormality, diffuse leads Borderline prolonged QT interval Compared to ECG 10/01/2019 16:36:46 No significant changes Electronically Signed On 10-02-2019 14:27:41 CDT by Jatinder Rico [email or web address] <ELECTRONICALLY SIGNED> By: Jatinder Rico MD, [facility] 10/02/19 1427 1416 1416 Jatinder Rico MD, [facility] /EPI
[2019-10-02 14:35] LABS: BE -5.9 mmol/L (-2 to +3); PCO2 24.1 mmHg (35.0-45.0); PO2 81.1 mmHg (75.0-100.0); pH 7.462 (7.340-7.450)
[2019-10-02 15:24] LABS: CALCIUM 7.9 mg/dL (8.5-10.1); CREATININE 1.6 mg/dL (0.6-1.3); POTASSIUM 4.1 mmol/L (3.5-5.1)
[2019-10-02 15:57] LABS: MCH 27.9 pg (26.0-34.0); MCHC 33.4 g/dL (28.0-37.0); MCV 83.6 fL (80.0-100.0); MPV 10.9 fl. (7.2-11.1); NUCLEATED RBCS 0 /100WBC; PLATELET COUNT* 204 thou/uL (150-400); RBC 2.27 mil/uL (4.20-5.00); RDW-CV 15.4 % (10.5-14.5); WBC 17.8 thou/uL (4.0-11.0)
[2019-10-02 16:00] LABS: HEMOGLOBIN 6.3 gm/dL (12.0-15.0)
[2019-10-02 16:05] LABS: APTT 33.4 Seconds (25.0-31.3); INR 1.6
[2019-10-02 16:23] LABS: ABSOLUTE LYMPHOCYTES 0.7 thou/uL (0.8-5.3); ABSOLUTE MONOCYTES 0.5 thou/uL (0.0-1.2); ABSOLUTE NEUTROPHILS 16.6 thou/uL (1.6-8.1); ANISOCYTOSIS Occasional; PLATELET ESTIMATE ADEQUATE
[2019-10-03] VITALS (29 sets, daily range): BP systolic 91–178; BP diastolic 40–155
[2019-10-03 02:24] LABS: pH 7.417 (7.340-7.450)
[2019-10-03 05:25] LABS: ABSOLUTE LYMPHOCYTES 0.8 thou/uL (0.8-5.3); ABSOLUTE MONOCYTES 0.8 thou/uL (0.0-1.2); BASOPHILS 0.1 %; HEMATOCRIT 27.3 % (37.0-47.0); MCH 29.5 pg (26.0-34.0); MCHC 33.7 g/dL (28.0-37.0); MCV 87.5 fL (80.0-100.0); MONOCYTES 5.3 %; NUCLEATED RBCS 0 /100WBC; PLATELET COUNT* 170 thou/uL (150-400); POLYS 89.6 %; RBC 3.12 mil/uL (4.20-5.00); RDW-CV 16.2 % (10.5-14.5); WBC 15.6 thou/uL (4.0-11.0)
[2019-10-03 05:36] LABS: HEMOGLOBIN 9.2 gm/dL (12.0-15.0)
[2019-10-03 05:47] LABS: ALBUMIN 1.7 g/dL (3.4-5.0); CALCIUM 7.3 mg/dL (8.5-10.1); CREATININE 2.3 mg/dL (0.6-1.3); MAGNESIUM 2.2 mg/dL (1.8-2.4); PHOSPHORUS* 6.2 mg/dL (2.5-4.9); TOTAL BILIRUBIN 0.7 mg/dL (<0.1-1.0); TOTAL PROTEIN 6.6 g/dL (6.4-8.2)
[2019-10-03 06:00] LABS: POTASSIUM 5.9 mmol/L (3.5-5.1)
[2019-10-03 12:51] LABS: BE -7.6 mmol/L (-2 to +3); PCO2 21.3 mmHg (35.0-45.0); pH 7.459 (7.340-7.450)
[2019-10-03 12:52] LABS: PO2 467.3 mmHg (75.0-100.0)
[2019-10-03 17:44] LABS: ABSOLUTE LYMPHOCYTES 1.1 thou/uL (0.8-5.3); ABSOLUTE MONOCYTES 0.5 thou/uL (0.0-1.2); ABSOLUTE NEUTROPHILS 17.7 thou/uL (1.6-8.1); EOSINOPHILS 0.1 %; HEMATOCRIT 25.7 % (37.0-47.0); HEMOGLOBIN 8.7 gm/dL (12.0-15.0); LYMPHOCYTES 5.8 %; MCH 29.2 pg (26.0-34.0); MCHC 33.9 g/dL (28.0-37.0); MCV 86.1 fL (80.0-100.0); MONOCYTES 2.8 %; MPV 10.6 fl. (7.2-11.1); NUCLEATED RBCS 2 /100WBC; PLATELET COUNT* 152 thou/uL (150-400); POLYS 91.3 %; RBC 2.98 mil/uL (4.20-5.00); RDW-CV 15.8 % (10.5-14.5); WBC 19.3 thou/uL (4.0-11.0)
[2019-10-03 17:54] LABS: APTT 34.8 Seconds (25.0-31.3); INR 2.2; PROTIME 21.8 Seconds (9.20-11.50)
[2019-10-03 18:03] LABS: ALBUMIN 2.2 g/dL (3.4-5.0); CALCIUM 7.1 mg/dL (8.5-10.1); CREATININE 2.2 mg/dL (0.6-1.3); MAGNESIUM 1.9 mg/dL (1.8-2.4); TOTAL BILIRUBIN 0.8 mg/dL (<0.1-1.0); TOTAL PROTEIN 6.8 g/dL (6.4-8.2)
[2019-10-03 18:05] LABS: POTASSIUM 4.3 mmol/L (3.5-5.1)
[2019-10-04] VITALS (62 sets, daily range): BP systolic 77–191; BP diastolic 36–168
[2019-10-04 04:57] LABS: ABSOLUTE LYMPHOCYTES 1.2 thou/uL (0.8-5.3); ABSOLUTE MONOCYTES 0.5 thou/uL (0.0-1.2); BASOPHILS 0.1 %; HEMOGLOBIN 8.3 gm/dL (12.0-15.0); LYMPHOCYTES 5.2 %; MCH 28.7 pg (26.0-34.0); MCHC 33.1 g/dL (28.0-37.0); MCV 86.6 fL (80.0-100.0); MPV 11.2 fl. (7.2-11.1); NUCLEATED RBCS 2 /100WBC; PLATELET COUNT* 146 thou/uL (150-400); POLYS 92.7 %; RBC 2.89 mil/uL (4.20-5.00); RDW-CV 15.9 % (10.5-14.5); WBC 22.7 thou/uL (4.0-11.0)
[2019-10-04 05:11] LABS: PHOSPHORUS* 5.8 mg/dL (2.5-4.9)
[2019-10-04 05:29] LABS: ALBUMIN 2.3 g/dL (3.4-5.0); CALCIUM 6.4 mg/dL (8.5-10.1); CREATININE 2.8 mg/dL (0.6-1.3); POTASSIUM 4.4 mmol/L (3.5-5.1); TOTAL BILIRUBIN 0.8 mg/dL (<0.1-1.0)
--- NOTE | 2019-10-04 08:29 | EKG ---
[place] [address] ELECTROCARDIOGRAM REPORT Name: ATUL HAMLIN Room: [address] IN [facility].#: [id number] Admission: 09/26/19 Attend Phys: Jesus Palmer, Discharge: Date of : 47 Date of Service: 10/03/19 1708 Report #: [id number] THIS REPORT FOR: //name// [facility] Test Date: 2019-10-03 Test Time: 17:08:14 Pat Name: ATUL HAMLIN Department: Room: 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 Layer: CELESTINA : 1945 Requested By: Casimiro Escobar Order Number: [id number] Reading MD: Liban Vick Measurements Intervals [place] Rate: 94 P: 46 NM: 153 QRS: 17 QRSD: 96 T: 255 QT: 453 QTc: 567 Interpretive Statements Sinus rhythm Atrial premature complex Repol abnrm suggests ischemia Prolonged QT interval Baseline wander in lead(s) V5 Compared to ECG 10/02/2019 14:16:23 Atrial premature complex(es) now present Possible ischemia now present Sinus tachycardia no longer present Electronically Signed On 10-04-2019 8:27:19 CDT by Liban Vick [email or web address] <ELECTRONICALLY SIGNED> By: Liban Vick MD, [facility] 10/04/19 0827 1708 170 Liban Vick MD, [facility] /EPI
[2019-10-04 09:16] LABS: BE -6.8 mmol/L (-2 to +3); pH 7.516 (7.340-7.450)
[2019-10-04 09:18] LABS: PCO2 19.1 mmHg (35.0-45.0); PO2 184.5 mmHg (75.0-100.0)
[2019-10-05] VITALS (31 sets, daily range): BP systolic 83–126; BP diastolic 43–62
[2019-10-05 02:08] LABS: HEPATITIS B SURFACE AG Negative (Negative)
[2019-10-05 06:40] LABS: HEMATOCRIT 24.9 % (37.0-47.0); HEMOGLOBIN 8.2 gm/dL (12.0-15.0); MCHC 32.9 g/dL (28.0-37.0); MCV 87.9 fL (80.0-100.0); NUCLEATED RBCS 2 /100WBC; PLATELET COUNT* 125 thou/uL (150-400); RBC 2.83 mil/uL (4.20-5.00); RDW-CV 16.7 % (10.5-14.5); WBC 30.8 thou/uL (4.0-11.0)
[2019-10-05 06:49] LABS: PROTIME 67.3 Seconds (9.20-11.50)
[2019-10-05 06:54] LABS: APTT 49.3 Seconds (25.0-31.3)
[2019-10-05 06:56] LABS: ALBUMIN 3.1 g/dL (3.4-5.0); CALCIUM 6.8 mg/dL (8.5-10.1); CREATININE 2.8 mg/dL (0.6-1.3); POTASSIUM 4.4 mmol/L (3.5-5.1); TOTAL PROTEIN 5.9 g/dL (6.4-8.2)
[2019-10-05 07:02] LABS: ABSOLUTE LYMPHOCYTES 0.9 thou/uL (0.8-5.3); ABSOLUTE MONOCYTES 0.3 thou/uL (0.0-1.2); ABSOLUTE NEUTROPHILS 29.6 thou/uL (1.6-8.1); ATYPICAL LYMPHS 1 %; OVALOCYTES 1+; PLATELET ESTIMATE DECREASED; POLYCHROMASIA 1+
[2019-10-05 07:03] LABS: ANISOCYTOSIS 1+; HYPOCHROMASIA 1+; POIKILOCYTOSIS 1+
[2019-10-05 08:26] LABS: BE -3.2 mmol/L (-2 to +3); PCO2 34.9 mmHg (35.0-45.0)
[2019-10-05 08:27] LABS: PO2 145.5 mmHg (75.0-100.0)
[2019-10-06 10:09] LABS: ANA INTERPRETATION Positive (Negative)
--- NOTE | 2019-10-07 07:48 | CON ---
[address] [address] CONSULTATION Name: NAFISAIRENEATUL Locke Room: [address]#: [id number] Admission: 09/26/19 Attend Phys: Jesus Palmer MD Discharge: 10/06/19 Date of : 47 Report #: [id number] THIS REPORT FOR: //name// cc: Jatinder Lugo MD, David L. MD ~ THIS REPORT FOR: //name// CC: Jatinder Palmer DATE OF SERVICE: 10/01/2019 NEPHROLOGY CONSULTATION REQUESTING PHYSICIAN: Dr. Luciano. REASON FOR NEPHROLOGY CONSULTATION: Metabolic acidosis and acute kidney injury. REASON FOR ADMISSION: Diarrhea and syncope. HISTORY OF PRESENT ILLNESS: This is a 74-year-old female with past medical history of lupus. She is on chronic Plaquenil and she came in initially on 09/26/2019 because of weakness and syncopal episode. She was also having diarrhea and poor appetite for 3 days prior to coming to the hospital. She was diagnosed with pneumonia here at the hospital and it was most likely aspiration pneumonia according to primary team and ID and she was being treated for that with vancomycin and cefepime. She was hypertensive initially when she came to the hospital and Rapid Response team had to be called yesterday because she was confused and her work of breathing was higher. She had a chest CT and a chest x-ray done yesterday, which showed bilateral alveolar infiltrates yesterday and a COVID test has been negative for 2 times, but it is being considered that this is possibly a false negative test, she is in ICU right now. She is hemodynamically stable and she was started on a low dose bicarbonate drip since yesterday and labs are pending today. Her creatinine was 1.6 yesterday, with her baseline creatinine is around 1.2-1.3, but she did come to the hospital with a creatinine of 1.8, did go down to 1.2 but then again went up to 1.6 yesterday. She has been confused at least this morning for me. Also, her blood cultures have been growing Staphylococcus aureus, which is MSSA on 2 occasions on 09/26/2019 and 09/29/2019 and Infectious Disease is following her for that. She is also oliguric, she made about 250 mL of urine overnight. ALLERGIES: TO GATIFLOXACIN, LEVOFLOXACIN, QUINOLONES, IN GENERAL PENICILLINS. REVIEW OF SYSTEMS: As mentioned in history of present illness, unable to review with the patient because [place] [address] CONSULTATION Name: ATUL HAMLIN Room: [address] IN ..#: [id number] Admission: 09/26/19 Attend Phys: Jesus Palmer MD Discharge: 10/06/19 Date of : 47 Report #: [id number] HOME MEDICATIONS: Which include Zocor, hydroxychloroquine, amitriptyline, albuterol nebulizer, budesonide, (hydrocodone/acetaminophen) [place], cyanocobalamin, montelukast, nystatin, triamcinolone and cevimeline. PAST MEDICAL AND SURGICAL HISTORY: Which includes pneumonia, likely chronic kidney disease stage 3, baseline creatinine 1.2-1.3, anemia, dyslipidemia, GERD and lupus. FAMILY HISTORY: Not able to obtain from the patient. SOCIAL HISTORY: According to the patient's chart, she does not smoke or take alcohol or use illicit drugs. PHYSICAL EXAMINATION: VITAL SIGNS: Her blood pressure is 105/85, heart rate was 110, temperature was 36.2 and respiratory rate was reported as 40 this morning. Pulse ox is 100% and she is on 2 liters of oxygen by nasal cannula. GENERAL: She is drowsy and confused. HEAD AND EYES: Atraumatic, normocephalic. Normal conjunctivae. EARS, NOSE, AND THROAT: Normal ears and nose. Mucous membranes are dry. NECK: There is no JVD. CHEST: Bilaterally diminished breath sounds anteriorly. Crackles are difficult to hear because of poor respiratory effort. CARDIOVASCULAR: S1, S2 normal. No murmurs. ABDOMEN: Soft, nondistended, nontender. EXTREMITIES: There was no lower extremity edema. NEUROLOGICAL FUNCTION: Seems to be confused. PSYCHIATRIC: Not able to assess. LABORATORY DATA: WBC 10.7 and hemoglobin is 8.9. Vancomycin level was 28 yesterday. Sodium was 138 yesterday, potassium was 3.7 and BUN was 47 yesterday, creatinine was 1.2 yesterday, CO2 was 15 yesterday and labs from today are pending. ABG showed pH of 7.42 with a CO2 of 18.6. Other labs were reviewed. IMAGING: Chest x-ray and chest CT and head CT that were reviewed. ASSESSMENT: 1. Acute kidney injury on chronic kidney disease stage 3 and baseline creatinine is around 1.2-1.3 and creatinine was 1.8 on admission. She is oliguric currently. Acute kidney injury in the setting of aspiration pneumonia, likely intravascular volume depletion. Renal imaging is pending. UA was reviewed, it looks like a contaminated specimen with 3-10 rbc's per high power field. 2. Altered mental status, etiology is not clear, could be because of infection. 3. She does have evidence of MSSA in her blood, recurrent bacteremia. [address] [place] [address] CONSULTATION Name: ATUL HAMLNI Room: [address]#: [id number] Admission: 09/26/19 Attend Phys: Jesus Palmer MD Discharge: 10/06/19 Date of : 47 Report #: [id number] Infectious Disease is on board. She was getting vancomycin. 4. Possibility of vancomycin nephrotoxicity as well. 5. Anion gap metabolic acidosis, likely because of renal insufficiency. 6. History of systemic lupus erythematosus. She was on chronic Plaquenil at home. 7. Elevated AST. We will defer to primary team to investigate that. 8. Acute respiratory failure, being treated for aspiration pneumonia. Infectious Disease is following. 9. Mildly elevated troponin. No urgent intervention planned by Cardiology right now. PLAN: 1. We will also check a renal ultrasound, continue IV fluids half normal saline at 75 mEq or sodium bicarbonate at 75 mL an hour for now but in the morning, labs are pending and I have asked nursing to contact me with labs to see if the dose of bicarbonate needs to be adjusted. 2. Check a bladder scan and if she is retaining greater than 350 mL of urine, please place a Patten catheter. 3. She has been having recurrent bacteremia with MSSA, consider MARTHA. ID is on board. 4. Hold vancomycin until her level comes down to less than 20 to avoid nephrotoxicity. 5. Avoid hypotension and nephrotoxic agents. 6. Check morning labs. Thank you for this consultation. We will continue to follow with you. I spent 40 minutes in the critical care time, we spent in chart review, placing orders and care coordination. Discussed with nursing in detail. <ELECTRONICALLY SIGNED> By: Fe Quarles MD 10/07/19 0748 0914 [id number] Quarles MD /nt
--- NOTE | 2019-10-08 17:32 | CON ---
[address] [address] CONSULTATION Name: ATUL HAMLIN Room: [address]#: [id number] Admission: 09/26/19 Attend Phys: Jesus Palmer MD Discharge: 10/06/19 Date of : 47 Report #: [id number] THIS REPORT FOR: //name// cc: Jatinder Lugo MD, David L. MD ~ THIS REPORT FOR: //name// CC: Jatinder Palmer DATE OF SERVICE: 10/03/2019 CONSULT REQUESTED BY: Casimiro Escobar MD INDICATION FOR CONSULTATION: Acute respiratory failure/pulmonary infiltrates. HISTORY OF PRESENT ILLNESS: This is a 74-year-old female. The past medical history is as mentioned below. The patient is on long-term therapy with hydroxychloroquine for a history of lupus. There is no mention of an obstructive lung disease on the patient's records. It is, however, noted that the patient did have a record of taking budesonide nebulizer as well as albuterol at home. The patient is reported to have had recurrent pneumonia in the past. The patient at this time was initially admitted on 09/25, presentation was with increase in shortness of breath, weakness and syncope. The patient is noted to have been febrile at the time of initial presentation. The patient's baseline creatinine is normal at or below 1.2. She was noted to have a creatinine of 1.8 on initial presentation. Considering that the patient was also febrile, she also was tested for COVID-19. So far, she has tested negative twice to COVID-19 since she was admitted. As discussed below, however, we still suspect that she may have COVID-19 despite these negative tests as it is discussed further in this consult. The patient's temperature initially was 39.3. She after initial resuscitation, did have improvement in her creatinine to her baseline of 1.2. The patient subsequently, however, started developing elevation in creatinine again, increasing to 1.6 yesterday and then up to 2.3 today. She has also had a significant metabolic acidosis. The patient is reported to have been becoming progressively more lethargic. She has been disoriented. The patient was tried on various p.r.n. sedative medications as of yesterday, at which point I had placed her on a Precedex infusion. There has been a progressive decline in her respiratory status. While the patient has continued to maintain O2 saturation on a nasal cannula, her respirations have become progressively more labored. Respiratory rates are sustained in the high 30s. When the Precedex infusion is cut back, her respiratory rates do improve, although she remains visibly labored when Precedex is increased, but the patient again becomes less responsive even when Precedex is cut back, the patient has remained lethargic and confused. Of note since admission, the patient has also been followed by the Cardiology Service. There is significant right heart [address] [address] CONSULTATION Name: ATUL HAMLIN Room: [address]#: [id number] Admission: 09/26/19 Attend Phys: Jesus Palmer MD Discharge: 10/06/19 Date of : 47 Report #: [id number] pressures on her echocardiogram with the pulmonary artery systolic elevated to 60 with a left ventricular ejection fraction of 55-60%. There are, however, valvular abnormalities as well including moderate mitral regurgitation as well as aortic valvular abnormalities. We therefore did do venous Dopplers yesterday, which did not show a DVT. There was also a drop in the patient's hemoglobin yesterday and the patient has since then received packed RBCs. Earlier this morning, the patient had a significant further elevation in creatinine, potassium also isamar and therefore, the patient has had a temporary dialysis catheter placed. The plan is to perform dialysis this afternoon. The patient was unable to provide a further history or review of systems. PAST MEDICAL HISTORY: The patient has a history of lupus erythematosus. She has been on hydroxychloroquine long-term. Also history of recurrent pneumonia in the past, cholecystectomy, tonsillectomy, oophorectomy, hyperlipidemia. There is mention of the patient using nebulizers including albuterol and budesonide at home. The available previous pulmonary function test reports, however, are from several years ago and only show minimal restrictive lung disease to normal studies. SOCIAL HISTORY: There is no known history of smoking, ethanol abuse or drug abuse. CURRENT MEDICATIONS: List in [employer] reviewed. HOME MEDICATIONS: The list is in [employer] and this is also reviewed. ALLERGIES: THE PATIENT IS REPORTED TO BE ALLERGIC TO PENICILLIN WELL FLUOROQUINOLONES. The patient has tolerated cephalosporins without any documented reactions. FAMILY HISTORY: There is no pertinent family history known at this time. PHYSICAL EXAMINATION: GENERAL: The patient is on a Precedex infusion at 1, lethargic, was moaning, did not respond to verbal commands. Had a pulse of 108 and a blood pressure of 108/85. She was on 6 liters nasal cannula. At the time of my visit, there was a brief desaturation up to 84-86%, however, according to the nursing staff, the patient had so far been maintaining O2 saturations with nasal cannula in place. Earlier today, however, the patient did require a Ventimask as well. The patient since then has been endotracheally intubated and is currently ventilating and oxygenating adequately and we are in the process of bringing down FiO2. The ventilator settings are as documented in the [facility] and I reviewed these. The patient's respiratory rate is as discussed above, up to 38 earlier today. On the ventilator, the patient is now breathing around 20. HEENT: Head is normocephalic and atraumatic. NECK: Does not show raised JVP, asymmetry, [place] [address] CONSULTATION Name: ATUL HAMLIN Room: [address]#: [id number] Admission: 09/26/19 Attend Phys: Jesus Palmer MD Discharge: 10/06/19 Date of : 47 Report #: [id number] CHEST: Symmetrical expansion on inspection and palpation. On auscultation, breath sounds equal, decreased. No added sounds. HEART: Regular. There is a soft murmur. ABDOMEN: Soft and nontender. EXTREMITIES: Lower extremities show no edema, no calf tenderness. SKIN: Dry and intact. NEUROLOGICAL: Moves all extremities bilaterally equally and spontaneously with no focal deficit identified. LABORATORY DATA: The patient's lab work consistent with acute renal failure with metabolic acid[facility]. The patient's chemistries showing significant anemia up to 6.3 hemoglobin yesterday, since then transfused in [facility] reviewed. Final coagulation abnormalities with an INR elevated to 1.6 noted. COVID-19 test was negative twice. The patient's arterial blood gases showing a metabolic acidosis in [facility] reviewed. The patient is oxygenating adequately. The patient did have several chest x-rays during this hospitalization. There are multiple other imaging studies also performed. There is also a CT chest performed. In summary, there are extensive bilateral infiltrates noted on the CT chest. There is also chronic elevation of the right hemidiaphragm. In contrast with the elevation of the right hemidiaphragm, the infiltrates are new in this admission. Marked derangement of the liver function tests as well as markedly reduced albumin levels up to 1.5 are also noted. ASSESSMENT AND PLAN: 1. Acute hypoxemic respiratory failure. I decided to proceed with elective endotracheal intubation this morning considering a deterioration in the patient's mental status as well as significant tachypnea as well as worsening shortness of breath. The patient currently is on the ventilator and is ventilating and oxygenating adequately. We will continue with Precedex infusion if needed. Will use fentanyl second line. We may administer an occasional push of Versed. However, I would try to limit use of benzodiazepines in this patient considering her acute renal failure. The patient may require to be on the ventilator for several days before we can evaluate for weaning. 2. Pulmonary infiltrates/suspected COVID-19. The patient has extensive bilateral pulmonary infiltrates. These infiltrates are new compared with the patient's previous available imaging studies. COVID-19 testing is negative twice. However, the patient is also noted to be on hydroxychloroquine for lupus. Therefore, it will be entirely possible that the testing for COVID-19 is false negative due to the patient being on hydroxychloroquine. Therefore, I continue to suspect that the patient may have COVID-19. Certainly, multiple other infections can also lead to this picture on CT chest. Note that the patient does have a positive culture for Staph aureus in blood as well. At first glance, however, the patient's CT findings do not appear to be typical for Staphylococcus aureus pneumonia. 3. Acute renal failure with metabolic acidosis and hyperkalemia and severe [facility] [address] [place] [address] CONSULTATION Name: ATUL HAMLIN Room: [address]#: [id number] Admission: 09/26/19 Attend Phys: Jesus Palmer MD Discharge: 10/06/19 Date of : 47 Report #: [id number] hypoalbuminemia. On my exam, the patient in fact does not appear to be significantly fluid overloaded and therefore if at all possible, I would like to increase her intravascular volume, hope that placing her on the ventilator with help us with this. Considering the patient's albumin level is markedly decreased, if the patient is ventilating and oxygenating adequately, I would initially go ahead and give her some albumin and see how she responds. This should increase her intravascular volume. The patient is also undergoing hemodialysis due to electrolyte abnormalities and acidosis per the Renal Service. 4. Severe pulmonary hypertension. It will be entirely possible that the patient has a hypercoagulable state secondary to COVID-19 leading to acute pulmonary emboli at this time. This could possibly explain pulmonary hypertension. Certainly, there are valvular abnormalities noted on the echo as well, which could be an alternate explanation. Compared with the patient's previous echocardiogram available from 2015, there is a significant rise in the patient's pulmonary artery systolic pressures. The patient's previous pulmonary artery pressure was 31. I would have otherwise placed the patient on IV heparin at this time, however, it is noted that the patient had a marked drop in hemoglobin yesterday and there is also derangement of her coagulation studies; therefore, I would watch closely and then continue to evaluate risks and benefits of anticoagulation therapy. For now in fact due to a drop in hemoglobin level, I had even discontinued her previously ordered Lovenox. If the patient's hemoglobin was remained stable, to start on subcutaneous heparin first and then follow response. 5. Lupus erythematosus. Note that the patient does take hydroxychloroquine at home. 6. Possible obstructive lung disease. There is no mention of an obstructive lung disease on the records, though the patient is reported to have used inhaled corticosteroids as well as bronchodilators at home. She does not appear to be actively bronchospastic. In order to limit aerosolization of COVID-19 virus if present and considering that she is not actively bronchospastic, I did not order nebulized bronchodilators at this time. Certainly, I may consider this later. The use of steroids in a patient with COVID-19 both have significant risks and benefits. On balance, it appeared to me that benefits may outweigh risks and therefore very cautiously, I did order a relatively small dose of Solu-Medrol at 40 IV b.i.d. and will follow this very closely. 7. Gastroesophageal reflux disease/anemia. The patient is on a proton pump inhibitor. 8. Hyperglycemia, insulin sliding scale. 9. Deep vein thrombosis prophylaxis, SCDs. We did perform venous Dopplers last night and these did come back negative. 10. Abnormal LFTs. It appears likely to me that these are secondary to intravascular volume depletion. If we are able to continue to ventilate the patient adequately, then in addition to giving her albumin, I would favor considering giving her some IV fluids as well. The Nephrology Service is on the case, hopefully endotracheally intubating her will help us in keeping her at a [address] [place] [address] CONSULTATION Name: ATUL HAMLIN Room: [address] IN M.R.#: [id number] Admission: 09/26/19 Attend Phys: Jesus Palmer MD Discharge: 10/06/19 Date of : 47 Report #: [id number] higher intravascular volume. The patient is obviously critically ill at this time. The total time spent providing critical care to this patient today exceeds 50 minutes. <ELECTRONICALLY SIGNED> By: Nikko Forrest MD 10/08/19 1732 1524 [id number] Forrest MD /nt
--- NOTE | 2019-10-18 13:21 | OP ---
[address] [address] OPERATIVE REPORT Name: ATUL HAMLIN Room: [address]#: [id number] Admission: 09/26/19 Attend Phys: Jesus Palmre MD Discharge: 10/06/19 Date of : 47 Report #: [id number] THIS REPORT FOR: //name// cc: Jatinder Lugo MD, David L. MD ~ THIS REPORT FOR: //name// CC: Jatinder Palmer DATE OF SERVICE: 10/03/2019 PREOPERATIVE DIAGNOSIS: Acute on chronic renal failure. POSTOPERATIVE DIAGNOSIS: Acute on chronic renal failure. PROCEDURES: 1. Ultrasound-guided access to the right internal jugular vein. 2. Temporary dialysis catheter placement. SURGEON: Saul Gambino DO FISHER WEIR: None. ANESTHESIA: Local. ESTIMATED BLOOD LOSS: 50 mL. IMPLANTS: A 20 cm temporary dialysis catheter in the right IJ. FINDINGS: Right IJ was soft and compressible, suitable for access. The catheter aspirated and flushed well. CLINICAL HISTORY: The patient is a 74-year-old woman, came in with [id number] renal failure with Staphylococcus aureus septicemia, pneumonia and possible COVID infection. DESCRIPTION OF PROCEDURE: After consent was obtained, the patient was already in the ICU sedated with Precedex, the right neck was prepped and draped in usual sterile fashion. A timeout was performed identifying correct patient and procedure. Next, using ultrasound guidance, right internal jugular vein was identified, was accessed with an 18 gauge needle, preserving the images. Using Seldinger technique, a wire was passed through the right IJ. A small stab incision was made. The tract was dilated and the temporary dialysis catheter was placed over the wire. The wires were removed. The catheter aspirated and flushed well with saline. The catheter was then secured to the neck with a 2-0 [place] [address] OPERATIVE REPORT Name: ATUL HAMLIN Room: [address]#: [id number] Admission: 09/26/19 Attend Phys: Jesus Palmer MD Discharge: 10/06/19 Date of : 47 Report #: [id number] silk suture and a sterile dressing was applied. All counts reported correct x 2. She tolerated the procedure well. The catheter may be used immediately for dialysis needs. <ELECTRONICALLY SIGNED> By: Percy Medina MD 10/18/19 1321 1029 1044Acase Gambino DO /nt
--- NOTE | 2019-10-18 13:21 | CON ---
[address] [address] CONSULTATION Name: ATUL HAMLIN Room: [address]#: [id number] Admission: 09/26/19 Attend Phys: Jesus Palmer MD Discharge: 10/06/19 Date of : 47 Report #: [id number] THIS REPORT FOR: //name// cc: Jatinder Lugo MD, David L. MD ~ THIS REPORT FOR: //name// CC: Jatinder Palmer DATE OF SERVICE: 10/03/2019 REASON FOR CONSULTATION: Zctgv-gr-ajnnflm renal failure with need for a temporary dialysis catheter. HISTORY OF PRESENT ILLNESS: The patient is a 74-year-old woman who was admitted with multiple medical issues. She has a suspected pneumonia, hospital COVID infection, Staph aureus septicemia, now in essentially multisystem organ failure. Her chronic kidney disease is acutely worsening and Nephrology has requested a temporary dialysis catheter placement. PAST MEDICAL HISTORY: Includes hyperlipidemia, COPD, lupus, GERD, anemia, pneumonia. FAMILY HISTORY: Reviewed from chart, noncontributory. SOCIAL HISTORY: Denies any drug or tobacco use or alcohol use. PAST SURGICAL HISTORY: Again, reviewed chart. No pertinent surgical history. REVIEW OF SYSTEMS: Unable to perform accurate review of systems given her altered mental status at this time. PHYSICAL EXAMINATION: GENERAL: The patient is sedated with Precedex in the ICU given her altered mental status. She really is not verbalizing or responding to questions appropriately. HEENT: Normocephalic, atraumatic. Her pupils are equally round and reactive to light and accommodation. Extraocular muscles intact. NECK: Supple. No JVD, lymphadenopathy or carotid bruits. CARDIOVASCULAR: She is slightly tachycardic, but appears regular rhythm. LUNGS: Coarse breath sounds bilaterally. ABDOMEN: Soft, nontender. Bowel sounds present. Aorta not aneurysmal. EXTREMITIES: [place], warm and well perfused. NEUROLOGIC: Cranial nerves 2-12 seem grossly intact. No focal motor [place] [address] CONSULTATION Name: ATUL HAMLIN Room: [address]#: [id number] Admission: 09/26/19 Attend Phys: Jesus Palmer MD Discharge: 10/06/19 Date of : 47 Report #: [id number] ASSESSMENT AND PLAN: Again, the patient is a 74-year-old woman with kbpsn-go-[id number] renal failure. Plan will be for placement of a temporary dialysis catheter at the bedside. <ELECTRONICALLY SIGNED> By: Percy Medina MD 10/18/19 1321 1027 1056Acase Gmabino, /nt
--- NOTE | 2019-11-04 08:28 | CON ---
[address] [address] CONSULTATION Name: ATUL HAMLIN Room: [address]#: [id number] Admission: 09/26/19 Attend Phys: Jesus Palmer MD Discharge: 10/06/19 Date of : 47 Report #: [id number] THIS REPORT FOR: //name// cc: Jatinder Lugo MD, David L. MD ~ THIS REPORT FOR: //name// CC: Jatinder Palmer DATE OF SERVICE: 10/03/2019 HISTORY OF PRESENT ILLNESS: This is a pleasant 74-year-old female with past medical history significant for lupus who presented to the hospital on 09/26/2019 for weakness and syncopal episode. The patient also reported diarrhea and poor appetite prior to presentation and increased shortness of breath and dyspnea on exertion. The patient is currently sedated, intubated and all the history has been obtained from her chart. The GI service has been consulted for evaluation of elevated liver enzymes. PAST MEDICAL HISTORY: The patient has a known past medical history of SLE and hyperlipidemia. PAST SURGICAL HISTORY: Nonsignificant. SOCIAL HISTORY: The patient has no known history of smoking, alcohol or recreational drug use. FAMILY HISTORY: Not relevant. REVIEW OF SYSTEMS: Unable to obtain because of the patient's clinical status. PHYSICAL EXAMINATION: VITAL SIGNS: Pulse rate 86, respirations 20, blood pressure 102/49 and pulse ox 95% on vent. GENERAL: The patient is sedated, intubated and no evidence of a chronic liver disease, manifesting bitemporal wasting or spider angiomata seen over the upper extremities. HEENT: Mucous membranes are moist. There is no scleral icterus. LUNGS: Clear to auscultation with coarse bilateral rhonchi. CARDIOVASCULAR: Rate and rhythm regular, S1, S2 present. ABDOMEN: Soft. There is no distention, guarding or rigidity. EXTREMITIES: Warm, well-perfused. There is no pitting edema. LABORATORY DATA: Hemoglobin 9.2, hematocrit 27.3, platelet count 170 and WBC count 15.6. INR 1.6. Sodium 144, potassium 5.9, chloride 111, bicarbonate 18, [place] [address] CONSULTATION Name: ATUL HAMLIN Room: [address]#: [id number] Admission: 09/26/19 Attend Phys: Jesus Palmer MD Discharge: 10/06/19 Date of : 47 Report #: [id number] BUN 75 and creatinine 2.3. The patient's total bilirubin is 0.4, AST 3388, ALT 627 and alkaline phosphatase is 131. AST yesterday was 99, ALT yesterday was 37 and alkaline phosphatase was 116. COVID testing negative, but the patient remains in isolation because of high suspicion. ASSESSMENT AND PLAN: Pleasant 74-year-old female who presented with diarrhea, weakness, pneumonitis and subsequently had to be intubated. GI service consulted for elevated liver enzymes. I would recommend getting autoimmune hepatitis serologies as well as ultrasound abdomen to rule out Budd-Chiari syndrome. Her leading differentials include acute viral hepatitis, acute autoimmune hepatitis, drug-induced liver injury and Budd-Chiari syndrome. Further recommendations will be based on results of these tests. About 30 minutes were spent in the Critical Care Unit performing physical examination, obtaining history from the chart and formulating a plan of care. <ELECTRONICALLY SIGNED> By: Abel Alonso MD 11/04/19 [id number] Alonso MD /nt
== END 2019-10-06 04:55 | DRG 871 ==
LOC: M.ERS 21:40 → M.TBA-ER 23:32 → M.ORTHSURG 23:32 → M.ICU 09-30 19:21 → M.ORTHSURG 10-05 18:19
PROVIDERS: Emergency Medicine Emergency Medical Services; Family Medicine; Internal Medicine; Internal Medicine Critical Care Medicine; Internal Medicine Gastroenterology; Specialist; ADMIT Internal Medicine; ATTEND Internal Medicine
PROC: 30233N1 Transfusion of Nonautologous Red Blood Cells into Peripheral Vein, Percutaneous Approach (ICD-10-PCS; principal; 2019-10-02)
PROC: B548ZZA Ultrasonography of Superior Vena Cava, Guidance (ICD-10-PCS; 2019-10-03)
PROC: 02H633Z Insertion of Infusion Device into Right Atrium, Percutaneous Approach (ICD-10-PCS; 2019-10-03)
PROC: 5A1945Z Respiratory Ventilation, 24-96 Consecutive Hours (ICD-10-PCS; 2019-10-03)
PROC: 0BH17EZ Insertion of Endotracheal Airway into Trachea, Via Natural or Artificial Opening (ICD-10-PCS; 2019-10-03)
PROC: 30233K1 Transfusion of Nonautologous Frozen Plasma into Peripheral Vein, Percutaneous Approach (ICD-10-PCS; 2019-10-05)
DX: A41.01 Sepsis due to Methicillin susceptible Staphylococcus aureus (principal); J96.01 Acute respiratory failure with hypoxia; J15.9 Unspecified bacterial pneumonia; I21.A1 Myocardial infarction type 2; E43 Unspecified severe protein-calorie malnutrition; J69.0 Pneumonitis due to inhalation of food and vomit; R65.21 Severe sepsis with septic shock; N17.9 Acute kidney failure, unspecified; D68.59 Other primary thrombophilia; B17.9 Acute viral hepatitis, unspecified; G93.49 Other encephalopathy; E78.00 Pure hypercholesterolemia, unspecified; K21.0 Gastro-esophageal reflux disease with esophagitis; M32.9 Systemic lupus erythematosus, unspecified; N18.3 Chronic kidney disease, stage 3 (moderate); J44.9 Chronic obstructive pulmonary disease, unspecified; I27.20 Pulmonary hypertension, unspecified; E87.6 Hypokalemia; R73.9 Hyperglycemia, unspecified; E78.5 Hyperlipidemia, unspecified; E86.0 Dehydration; D69.6 Thrombocytopenia, unspecified; F03.90 Unspecified dementia, unspecified severity, without behavioral disturbance, psychotic disturbance, mood disturbance, and anxiety; D64.9 Anemia, unspecified; E83.39 Other disorders of phosphorus metabolism; I35.0 Nonrheumatic aortic (valve) stenosis; T50.2X5A Adverse effect of carbonic-anhydrase inhibitors, benzothiadiazides and other diuretics, initial encounter; Z66 Do not resuscitate; Z51.5 Encounter for palliative care; Z20.828 Contact with and (suspected) exposure to other viral communicable diseases; Z79.899 Other long term (current) drug therapy; Z88.1 Allergy status to other antibiotic agents; Z88.0 Allergy status to penicillin; Z88.8 Allergy status to other drugs, medicaments and biological substances; Y92.89 Other specified places as the place of occurrence of the external cause; Z68.28 Body mass index [BMI] 28.0-28.9, adult